=== PATIENT | female | born 1940 | race Caucasian/White ===

== ENCOUNTER → 2024-05-19 14:38 | Outpatient (REF) | payer MEDICARE, OTHER, SELFPAY | LOC: HWRAD 14:38 | PROVIDERS: ATTENDING PHYSICIAN Internal Medicine Critical Care Medicine; FAMILY PHYSICIAN Family Medicine | DX: R06.02 Shortness of breath (principal) | CPT/HCPCS: 71046 ==

== ENCOUNTER → 2024-06-18 10:10 | Outpatient (REF) | payer MEDICARE, OTHER, SELFPAY | LOC: RCS 10:10 | PROVIDERS: ATTENDING PHYSICIAN Internal Medicine; FAMILY PHYSICIAN Family Medicine | DX: I48.0 Paroxysmal atrial fibrillation (principal); I10 Essential (primary) hypertension | CPT/HCPCS: 93306 ==

== ENCOUNTER 2024-06-27 16:17 | Observation (INO) | payer MEDICARE, OTHER, SELFPAY ==
[2024-06-27] VITALS (7 sets, daily range): BP systolic 116–136; BP diastolic 55–105; PULSE 71–102; BMI 25.8
[2024-06-27 13:11] LABS: Glucose - Point of Care 97 mg/dl (70-99)
--- NOTE | 2024-06-27 13:25 | ED.GENMED ---
History of Present Illness
General
Chief Complaint: Dizziness
Source: patient and ambulance crew
Time Seen by Provider: 06/27/24 13:09
History of Present Illness
History of Present Illness:
84 year old female wit PMH of atrial fibrillation, HTN, HLD, migraines presenting to the emergency department via EMS for a reported syncopal episode but patient stating she is not really sure what happened. Patient notes that she was sitting down
for breakfast and then remembers waking up on the floor. She believes she may have been dizzy prior to the event, postevent she states she just feels 'lousy' and when asked what is bothering her she said both her arms and legs hurt. Patient denies
any current headache, vision changes, focal weakness or numbness, chest pain, shortness of breath, palpitations, diaphoresis or any other concerns presently. Patient is unsure as to if she is on any blood thinners, previous medication list did list
Eliquis as a medication but patient is unable to confirm. Patient does seem slightly confused and it is unclear as to if patient does have a history of dementia. She lives at a independent care facility with her .
Past History
Past History
ED Past Medical History: Arrthythmia, HTN, Hypercholesterolemia, Psychiatric and Other
ED Past Surgical History: Gynecological and Orthopedic
Social History
Tobacco: Non-smoker
Alcohol: None
Drug: None
Personal:
Living: with family
Employment: Retired
Family History
Family History: Hypertension and Other (CAD, COPD)
Review of Systems
Review of Systems
All Other Systems: ROS reviewed and negative except as documented in HPI and ROS
Phy Exam
Physical Exam
Physical Exam:
GENERAL: Alert , in no apparent distress
HEAD: NCAT
EYE: conjunctiva clear
NECK: Supple
ENT: o/p clr, mmm.
CARDIAC: Regular rate and rhythm
LUNGS: Clear breath sounds bilaterally, no acute respiratory distress, no wheezes/rales/rhonchi
ABDOMEN: Soft, non tender, non distended
NEUROLOGICAL: Alert and oriented to self and place but not time, MARADIAGA x4, no sensory deficits, no facial drooping, no dysarthria/aphasia
SKIN: Warm and dry, skin intact.
MUSCULOSKELETAL: well perfused.
PSYCH: Normal and appropriate interaction.
Scores
Heart Failure Risk
Heart Failure Risk Score: Not Applicable
Heart Score for Chest Pain Patients
STEMI patient?: Not applicable
Withdrawal Assessment of Alcohol
Withdrawal Assessment Completed?: Not applicable
Course
Orders/Labs/Results
Orders:
Orders
06/27/24 13:04
Electrocardiogram (*1) Urgent
Reason for Study: Other
Other Reason for Exam: Possible Stroke
Cardiac Monitoring- Treatment ONCE
EKG- Treatment ONCE
IV Insert/Care/Rem.- Treatment PRN
Vital Signs As Directed
Frequency: Other
Weight As Directed
Frequency: Once
Comment: ZERO STRETCHER SCALE FOR ACCURATE WEIGHT
O2 Therapy [RESP] Urgent
Titrate/Wean O2 to maintain O2 sat greater than (%): 93
Special Instructions: MAINTAIN CONTINUOUS O2 SATS > OR = 93%
06/27/24 13:18
CT Head W/o Iv Contrast Urgent
Comment:
Reason For Exam: syncope, dizzy, afib
Orthostatic VS- Treatment ONCE
06/27/24 13:23
Complete Blood Count/With Diff Urgent
Comprehensive Metabolic Panel Urgent
06/27/24 13:47
0.9% Sodium Chloride 1000 ml [Nss] 1,000 ml IV BOLUS
06/27/24 15:17
Acetaminophen [Tylenol] 650 mg PO NOW STA
Abnormal Lab Results
06/27/24
13:23
RBC 3.87 L 10^6/uL
(4.20-5.40)
Hgb 10.1 L g/dL
(12.0-16.0)
Hct 31.1 L %
(37.0-47.0)
MCV 80.4 L fL
(81.0-99.0)
MCH 26.1 L pg
(27.0-31.0)
MCHC 32.5 L g/dL
(33.0-37.0)
MPV 11.1 H fL
(7.4-10.4)
Carbon Dioxide 18 L mmol/L
(22-30)
BUN 21 H mg/dl
(7-17)
Creatinine 1.1 H mg/dL
(0.6-1.0)
AST 40 H U/L
(14-36)
06/27/24 13:23
06/27/24 13:23
Vital Signs
Initial and Last Documented VS:
Initial Vital Signs
Temp Pulse Resp BP Pulse Ox
97.9 F 75 12 118/68 98
06/27/24 13:05 06/27/24 13:05 06/27/24 13:05 06/27/24 13:05 06/27/24 13:05
Last Documented Vital Signs
Temp Pulse Resp BP Pulse Ox
97.9 F 71 17 131/105 99
06/27/24 13:05 06/27/24 13:45 06/27/24 13:45 06/27/24 13:27 06/27/24 14:35
MDM/Problems Addressed
Differential Diagnosis Includes:
orthostasis, vagal event, cardiogenic syncope, anemia, electrolyte derangement, ICH
MDM/Problems Addressed:
84-year-old female presenting to the emergency department for evaluation of her what appears to be a syncopal event. Patient questionably symptomatic presyncope but does appear somewhat confused. He is will check labs, orthostatics, CT of the head
given patient's suspected anticoagulated status. Patient is otherwise hemodynamically stable to go home and in no acute distress.
Chronic conditions affecting care: Arrhythmia
*Radiology
Radiology exam reviewed: radiology read reviewed
*Pulse Oximetry
Patient hypoxic: no
*EKG
Interpreted by ED Provider?: Yes
Heart Rate: 75
Rhythm: junctional
Estero: normal axis
Ischemia: no ischemia
*Collating Machine Operator Interpretation
Rate: normal
Rhythm: junctional
*Critical Care Note
Total Time (30-74mins, 75-104mins- exclusive of procedures): Not Applicable
Data Reviewed
Review of Other/Old Records Reveals: Labs and Records
Patient Management
Discussion with other providers: Hospitalist
Escalation/DeEscalation of care consider admission/obs:
Patient's orthostatic vital signs were noted. While her blood pressure did not drop significantly she did have some tachycardia. Labs do reveal a mild anemia as well as prerenal azotemia. This was treated with 1 L of normal saline. Head CT is
without any acute findings. Given her age combined with comorbidities I do feel it would be best to monitor the patient overnight, continue IV fluids and keep on telemetry to evaluate for any possible cardiac dysrhythmia. Hospitalist team is aware
and accepts for continued evaluation and treatment.
ED Attending Note
-
Portions of this chart may have been created with voice recognition software.� Occasional wrong word or��sound alike� substitutions may have occurred due to the inherent limitations of voice recognition software.
Discharge Plan
Departure
Patient Disposition: Admit
Date of Disposition: 06/27/24
Time of Disposition: 14:49
Presentation/result/management discussed w/ accepting MD/DO: Hospitalist
Discharge Problem:
Syncope, MIREILLE (acute kidney injury)
Prescriptions:
No Action
atorvastatin 40 MG tablet
40 mg PO HS
raloxifene 60 MG tablet
60 mg PO DAILY
docosahexaenoic acid-epa 1 CAP capsule
1 cap PO HS
levothyroxine 75 MCG tablet
75 mcg PO DAILY
calcium carbonate 600 MG tablet
600 mg PO DAILY
vitamin E (dl, acetate) 100 UNITS capsule
100 units PO HS
Centrum 1 EACH tablet
1 ea PO DAILY
PreserVision AREDS 1 CAP capsule
1 cap PO DAILY
cholecalciferol (vitamin D3) 2,000 UNITS tablet
2,000 units PO HS
pantoprazole 40 MG tablet,delayed release (DR/EC)
40 mg PO DAILY
Eliquis 5 MG tablet
5 mg PO BID
metoprolol succinate 25 MG tablet extended release 24 hr
25 mg PO DAILY Qty: 30 0RF
amlodipine 2.5 MG tablet
2.5 mg PO DAILY Qty: 30 0RF
spironolactone 25 MG tablet
25 mg PO DAILY
diltiazem HCl 180 MG capsule,extended release 24hr
180 mg PO DAILY
fluoxetine 40 mg Capsule
40 mg PO DAILY
donepezil 10 mg Tablet
10 mg PO HS
isosorbide dinitrate 30 mg Tablet
30 mg PO BID
memantine 10 mg Tablet
10 mg PO BID
Referrals:
Martin Larios MD [Family Provider] -
Interventions
Interventions:
*Risk Screen - Suicide Last Done: 06/27/24 13:05
*General Assessment Last Done: 06/27/24 13:05
*Neglect/Abuse Screening Last Done: 06/27/24 13:05
ED- Fall Risk Assessment Last Done: 06/27/24 14:35
*ED COVID-19 Vaccine History Last Done: 06/27/24 13:05
ED- Neurological Assessment Last Done: 06/27/24 13:19
ED- Cardiac Assessment Last Done: 06/27/24 14:35
ED Swallowing Screen Last Done: 06/27/24 15:10
Discharge Date and Time
Print Language: SAMI
[2024-06-27 13:39] LABS: % Basophils 0.9 % (0-2); % Immature Granulocytes 0.2 % (0-0.5); % Lymphocytes 30.5 % (20.5-51.1); % Monocytes 8.9 % (1.7-9.3); % Neutrophils 57.5 % (42.2-75.2); Absolute Basophils 0.1 10^3/uL (0-0.2); Absolute Eosinophils 0.1 10^3/uL (0-0.7); Absolute Lymphocytes 1.9 10^3/uL (1.2-3.4); Absolute Monocytes 0.6 10^3/uL (0.1-0.6); Absolute Neutrophils 3.7 10^3/uL (1.4-6.5); Hematocrit 31.1 % (37.0-47.0); Hemoglobin 10.1 g/dL (12.0-16.0); Mean Corp Hgb Conc. 32.5 g/dL (33.0-37.0); Mean Corpuscular Hgb 26.1 pg (27.0-31.0); Mean Corpuscular Volume 80.4 fL (81.0-99.0); Mean Platelet Volume 11.1 fL (7.4-10.4); Nucleated Red Blood Cells % 0 %; Platelet Count 245 10^3/uL (130-400); Red Blood Cell Count 3.87 10^6/uL (4.20-5.40); Red Cell Dist. Width 14.5 % (11.5-14.5); White Blood Cell Count 6.4 10^3/uL (4.8-10.8)
[2024-06-27 13:43] LABS: ALT (SGPT) 25 U/L (0-35); AST (SGOT) 40 U/L (14-36); Albumin 4.2 g/dl (3.5-5.0); Alkaline Phosphatase 75 U/L (38-126); Blood Urea Nitrogen 21 mg/dl (7-17); Calcium 9.6 mg/dl (8.4-10.2); Carbon Dioxide 18 mmol/L (22-30); Chloride 106 mmol/L (98-107); Estimated Creatinine Clearance 30 ml/min; Glucose 99 mg/dl (70-99); Potassium 4.5 mmol/L (3.5-5.1); Sodium 141 mmol/L (135-145); Total Bilirubin 0.6 mg/dl (0.2-1.3); Total Protein 6.8 g/dl (6.3-8.2); eGFR 49.24
[2024-06-27] MEDS: NSS 1000 IV (13:52)
[2024-06-27] MEDS: TYLENOL 650 MG PO (15:21)
--- NOTE | 2024-06-27 15:59 | HPS.HSE ---
Family Physician
-
Family Physician: Martin Larios
Chief Complaint
-
dizziness
History of Present Illness
84-year-old female past medical history of dementia, paroxysmal atrial fibrillation status post pulmonary vein isolation, hypertension, hyperlipidemia, hypothyroidism, microcytic anemia, chronic kidney disease migraines presented to emergency room
for reported dizziness resulting in presyncopal episode. History is obtained from patient's who states that she was walking with assistance from her when she felt dizzy and he brought her down to the ground. She did not hit her
head or have any injury. She denies passing out.
She denies any headache, visual changes, focal weakness or numbness or tingling, chest pain or shortness of breath. Patient frequently gets dizzy when she stands up too quickly or turns her head. She sometimes feels like her heart is racing.
Patient was noted to seem slightly confused by ER. She lives in independent care with her .
Medical History
Past Medical History
Past Medical History: Reports Other (dementia, paroxysmal atrial fibrillation status post pulmonary vein isolation, hypertension, hyperlipidemia, hypothyroidism, microcytic anemia, chronic kidney disease migraines)
Past Surgical History: Reports None
Social History
Tobacco: Non-smoker
Alcohol: None
Drug: None
Family History
Family History: Not pertinent
Allergies / Home Medications
Allergies reflects when Allergies were last updated in [employer].
Home Medications with original date entered in [employer]
Allergy/Medication List:
Allergies
Allergy/AdvReac Type Severity Reaction Status Date / Time
No Known Allergies Allergy Verified 08/25/22 16:08
Home Medications
atorvastatin 40 mg tablet 40 mg PO HS High cholesterol 05/24/13
docosahexaenoic acid (dha)-epa 120 mg-180 mg capsule 1 cap PO HS Supplement 05/24/13
raloxifene 60 mg tablet 60 mg PO DAILY Hormonal agent 05/24/13
calcium carbonate 600 mg PO DAILY Supplement 10/24/19
levothyroxine 75 mcg tablet 75 mcg PO DAILY Thyroid 10/24/19
multivitamin-ferrous fumarate-folic acid 18 mg-400 mcg tablet (Centrum) 1 ea PO DAILY Supplement 10/24/19
vitamin E (dl, acetate) 45 mg (100 unit) capsule 100 units PO HS Supplement 10/24/19
vitamins A,C,A-wlky-gmrlbw 4,296 mcg-226 mg-90 mg capsule (PreserVision AREDS) 1 cap PO DAILY Supplement 04/14/21
cholecalciferol (vitamin D3) 50 mcg (2,000 unit) tablet 2,000 units PO HS Supplement 04/30/21
pantoprazole 40 mg tablet,delayed release 40 mg PO DAILY Gastrointestinal issue 05/01/21
apixaban 5 mg tablet (Eliquis) 5 mg PO BID 08/30/21
amlodipine 2.5 mg tablet 2.5 mg PO DAILY #30 tabs 09/02/21
metoprolol succinate 25 mg tablet,extended release 24 hr 25 mg PO DAILY #30 tabs 09/02/21
diltiazem HCl 180 mg capsule,extended release 24 hr 180 mg PO DAILY 11/14/21
spironolactone 25 mg tablet 25 mg PO DAILY 11/14/21
donepezil 10 mg tablet 10 mg PO HS 06/27/24
fluoxetine 40 mg capsule 40 mg PO DAILY 06/27/24
isosorbide dinitrate 30 mg tablet 30 mg PO BID 06/27/24
memantine 10 mg tablet 10 mg PO BID 06/27/24
Review of Systems
-
History Source: Patient
A 12 point ROS was completed and negative except as noted: Yes
Constitutional: Reports No Symptoms
EENT: Reports No Symptoms
Respiratory: Reports No Symptoms
Cardiac: Reports No Symptoms
Abdomen/GI: Reports No Symptoms
: Reports No Symptoms
Musculoskeletal: Reports No Symptoms
Skin: Reports No Symptoms
Neurological: Reports No Symptoms
Endocrine: Reports No Symptoms
Hematologic/Lymphatic: Reports No Symptoms
Psych: Reports No Symptoms
Physical Exam
Vital Signs
Vital Signs
Temp Pulse Resp BP Pulse Ox
97.9 F 71 17 131/105 99
06/27/24 13:05 06/27/24 13:45 06/27/24 13:45 06/27/24 13:27 06/27/24 14:35
Physical Exam
General: Well Developed, Well Nourished and No Apparent Distress
HEENT: NormoCephalic, Moist mucous membranes and Atraumatic
Respiratory: Clear
Cardiac: S1/S2 and Regular Rhythm; No Murmur or Rub
GI: Soft, Non Tender, Non Distended and Normal Bowel Sounds; No Organomegaly
Rectal: Deferred by Provider
Musculoskeletal: No Clubbing, No Cyanosis and No Edema
Skin: No Rash
Neuro: Nonfocal/grossly intact
Laboratory Results
-
06/27/24 13:23
06/27/24 13:23
Laboratory Results
Total Bilirubin 0.6 mg/dl (0.2-1.3) 06/27/24 13:23
AST 40 U/L (14-36) H 06/27/24 13:23
ALT 25 U/L (0-35) 06/27/24 13:23
Alkaline Phosphatase 75 U/L (38-126) 06/27/24 13:23
Data Reviewed
-
Lab Data: Labs Reviewed by me
Old Records: Reviewed
Impression/Plan
-
IMPRESSION:
PLAN:
# Syncopal episode likely orthostatic hypotension from blood pressure medications
-Orthostatics barely positive due to pulse increasing from 71 to 102 upon standing
-IV fluids given
-Hold amlodipine since she is on diltiazem
-Hold isosorbide dinitrate, unclear indication since no CAD or CHF history
-Continue spironolactone
-Telemetry monitoring
-Check daily orthostatics
-PT/OT
Paroxysmal atrial fibrillation status post pulmonary vein isolation
-Continue diltiazem
-Continue Eliquis
-Continue metoprolol
Essential hypertension
-Hold amlodipine since taking diltiazem
-Continue spironolactone
Hyperlipidemia
-Continue statin
Hypothyroidism
-Continue levothyroxine
Chronic kidney disease
-Renal function at baseline
Microcytic anemia
-Stable
History of migraines
Dementia
-Continue donepezil, memantine
Anxiety/depression
-Continue fluoxetine
Osteoporosis
-Continue raloxifene
Full code
DVT prophylaxis�Eliquis
Regular diet
[2024-06-27] MEDS: NAMENDA 10 MG PO (20:15)
[2024-06-27] MEDS: ELIQUIS 5 MG PO (20:15)
[2024-06-27] MEDS: ARICEPT 10 MG PO (21:09)
[2024-06-27] MEDS: VITAMIN E 100 UNITS PO (21:09)
[2024-06-27] MEDS: LIPITOR 40 MG PO (21:09)
[2024-06-27] MEDS: VITAMIN D3 (cholecalciferol) 50 MCG PO (21:09)
[2024-06-28] VITALS (7 sets, daily range): BP systolic 114–146; BP diastolic 56–83; PULSE 76–82; O2SAT 98–99; BMI 24.9
[2024-06-28] MEDS: SYNTHROID 75 MCG PO (05:55)
[2024-06-28 07:28] LABS: % Basophils 0.8 % (0-2); % Eosinophils 1.8 % (0-6); % Immature Granulocytes 0.2 % (0-0.5); % Lymphocytes 21.9 % (20.5-51.1); % Neutrophils 65.3 % (42.2-75.2); Absolute Eosinophils 0.1 10^3/uL (0-0.7); Absolute Lymphocytes 1.1 10^3/uL (1.2-3.4); Absolute Monocytes 0.5 10^3/uL (0.1-0.6); Absolute Neutrophils 3.3 10^3/uL (1.4-6.5); Hematocrit 27.4 % (37.0-47.0); Hemoglobin 8.8 g/dL (12.0-16.0); Mean Corp Hgb Conc. 32.1 g/dL (33.0-37.0); Mean Corpuscular Volume 80.8 fL (81.0-99.0); Mean Platelet Volume 11.5 fL (7.4-10.4); Nucleated Red Blood Cells % 0 %; Platelet Count 175 10^3/uL (130-400); Red Blood Cell Count 3.39 10^6/uL (4.20-5.40); Red Cell Dist. Width 14.2 % (11.5-14.5); White Blood Cell Count 5.1 10^3/uL (4.8-10.8)
[2024-06-28 07:47] LABS: ALT (SGPT) 23 U/L (0-35); AST (SGOT) 31 U/L (14-36); Albumin 3.4 g/dl (3.5-5.0); Alkaline Phosphatase 70 U/L (38-126); Blood Urea Nitrogen 20 mg/dl (7-17); Carbon Dioxide 17 mmol/L (22-30); Chloride 109 mmol/L (98-107); Estimated Creatinine Clearance 33 ml/min; Glucose 99 mg/dl (70-99); Potassium 4.2 mmol/L (3.5-5.1); Sodium 140 mmol/L (135-145); Total Bilirubin 0.3 mg/dl (0.2-1.3); Total Protein 5.8 g/dl (6.3-8.2); eGFR 55.21
[2024-06-28] MEDS: CARDIZEM CD 180 MG PO (07:49)
[2024-06-28] MEDS: PROTONIX 40 MG PO (07:50)
[2024-06-28] MEDS: ELIQUIS 5 MG PO ×2 (07:50→19:48)
[2024-06-28] MEDS: TOPROL XL 25 MG PO (07:50)
[2024-06-28] MEDS: THERAGRAN 1 TABLET PO (07:50)
[2024-06-28] MEDS: OSCAL CAL 500 500 MG PO (07:50)
[2024-06-28] MEDS: ALDACTONE 25 MG PO (07:50)
[2024-06-28] MEDS: NAMENDA 10 MG PO ×2 (07:50→19:48)
[2024-06-28] MEDS: EVISTA 60 MG PO (07:50)
[2024-06-28] MEDS: OCUVITE SOFTGEL 1 CAP PO (07:50)
[2024-06-28] MEDS: PROZAC 40 MG PO (07:51)
--- NOTE | 2024-06-28 10:18 | PTOTSP ---
pt currently demonstrates ability to complete simple ADLs, functional transfers, ambulation with supervision. no acute OT needs identified at this time, will sign off.
--- NOTE | 2024-06-28 14:42 | W.PN.HOSP.TC ---
Today's Communication/Plan
-
Consulted cardiology given patient's near syncope
Continue tele
Echo
Assessment / Plan
Assessment / Plan
Physical Exam
General: Well Developed, Well Nourished and No Apparent Distress
HEENT: Normocephalic
Respiratory: Clear to Auscultation Bilaterally
Cardiac: S1/S2 and Regular Rhythm
GI: Soft, Non Tender, Non Distended and Normal Bowel Sounds
Musculoskeletal: No Cyanosis and No Edema
Skin: Warm. Dry.
Neuro: Nonfocal/grossly intact

84-year-old female past medical history of dementia, paroxysmal atrial fibrillation status post pulmonary vein isolation, hypertension, hyperlipidemia, hypothyroidism, microcytic anemia, chronic kidney disease migraines presented to the emergency
room for reported dizziness resulting in presyncopal episode. History is obtained from patient's who states that she was walking with assistance from her when she felt dizzy and he brought her down to the ground. She did not hit
her head or have any injury. She denied passing out.
She denied any headache, visual changes, focal weakness or numbness or tingling, chest pain or shortness of breath. Patient frequently gets dizzy when she stands up too quickly or turns her head. She sometimes feels like her heart is racing.
Patient was noted to seem slightly confused by ER. She lives in independent care with her .
# Syncopal episode likely orthostatic hypotension from blood pressure medications
-Orthostatics vital signs negative
-IV fluids given
-Hold amlodipine since patient is on diltiazem
-Hold isosorbide dinitrate, unclear indication since no CAD or CHF history
-Continue spironolactone
-Telemetry monitoring
-Check daily orthostatics
-Consulted cardiology, patient sees [facility] cardiology outpatient, appreciate evaluation and recommendations
-PT/OT
Paroxysmal atrial fibrillation status post pulmonary vein isolation
-Continue diltiazem
-Continue Eliquis
-Continue metoprolol
Essential hypertension
-Hold amlodipine since taking diltiazem
-Continue spironolactone
Hyperlipidemia
-Continue statin
Hypothyroidism
-Continue levothyroxine
Chronic kidney disease
-Renal function at baseline
Microcytic anemia
-Stable
History of migraines
Dementia
-Continue donepezil, memantine
Anxiety/depression
-Continue fluoxetine
Osteoporosis
-Continue raloxifene
Full code
DVT prophylaxis�Eliquis
Regular diet
Anticipated Discharge: Within 24 hours
Subjective/Interval History
-
Date of Service: June 28, 2024
Patient was seen and examined. She reported that her symptoms have all resolved, and she does not have any chest pain, dizziness, SOB or any other symptoms or complaints.
Objective Data
-
Labs:
Laboratory Results
06/28/24 06/28/24
06:37 19:30
WBC 5.1
Hgb 8.8 L
Hct 27.4 L
Plt Count 175 D
Sodium 140 Pending
Potassium 4.2 Pending
Chloride 109 H Pending
Carbon Dioxide 17 L Pending
BUN 20 H Pending
Creatinine 1.0 Pending
Glucose 99 Pending
Calcium 9.0 Pending
Total Bilirubin 0.3
AST 31
ALT 23
Alkaline Phosphatase 70
Vital Signs:
Vital Signs
Temp Pulse Resp BP Pulse Ox
98.5 F 64 14 139/73 98
06/28/24 08:26 06/28/24 08:26 06/28/24 08:26 06/28/24 08:26 06/28/24 08:26
I&O
0906/28/24 06/29/24
06:59 06:59 06:59
Intake Total 240 / 240
Output Total 300 / 300
Balance -60 / -60
--- NOTE | 2024-06-28 14:52 | CON.CAR ---
Addendum entered and electronically signed by Hansel Guadarrama MD 06/30/24 09:17:
I saw and examined the patient.
The WASTEWATER DESIGN ENGINEER's note was reviewed and I agree with the note.
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
element, transient intermittent orthostasis, dyslipidemia, previous TIA (08/2018), mild renal insufficiency, hypothyroidism, ambulatory dysfunction, VINH on CPAP, and mild Alzheimer's dementia presented to the emergency department with an episode of
pre-syncope. It is not clear that she had a true syncopal episode. She does not recall 'blacking out' but is able to say she was lead to the ground, however, she is a poor historian.
- will adjust BP medications and monitor
Patient was seen and examined on Jun 28, 2024, this is a late addendum.
Original Note:
Consultation
Consultation Request
Date/Time Consultation Requested: 06/28/2024 14:49
Date/Time Consultation Performed: 06/28/2024 15:00
Requesting Provider: Dr. Galvan
Performing Provider: RAINE Luis for Dr. Guadarrama
Reason for Consultation: Syncope
Medical History
-
Chief Complaint: Pre-syncope
History of Present Illness:
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
white-coat element, transient intermittent orthostasis, dyslipidemia, previous TIA (08/2018), mild renal insufficiency, hypothyroidism, ambulatory dysfunction, VINH on CPAP, and mild Alzheimer's dementia presented to the emergency department with an
episode of pre-syncope. She does not recall the event. He she is feeling 'great' at present. She has no chest pain, shortness of breath, nor dizziness.
Past Medical History
Past Medical History: Arrhythmias (Paroxysmal atrial fibrillation [ablation 2021]), HTN, Hypercholesterolemia, Hypothyroidism and Other (Dementia, TIA)
Social History
Tobacco: Non-Smoker
Alcohol: None
Drug: None
Personal:
Living: With Family ( and daughter)
Employment: Retired
Family History
Family History: Unable to Obtain
Allergies / Home Medications
Allergy/AdvReac Type Severity Reaction Status Date / Time
No Known Allergies Allergy Verified 08/25/22 16:08
�Medication �Instructions �Recorded �Confirmed �Type
atorvastatin 40 mg tablet 40 mg PO HS High cholesterol 05/24/13 06/27/24 History
docosahexaenoic acid (dha)-epa 120 1 cap PO HS Supplement 05/24/13 06/27/24 History
mg-180 mg capsule
raloxifene 60 mg tablet 60 mg PO DAILY Hormonal agent 05/24/13 06/27/24 History
calcium carbonate 600 mg PO DAILY Supplement 10/24/19 06/27/24 History
levothyroxine 75 mcg tablet 75 mcg PO DAILY Thyroid 10/24/19 06/27/24 History
multivitamin-ferrous 1 ea PO DAILY Supplement 10/24/19 06/27/24 History
fumarate-folic acid 18 mg-400 mcg
tablet (Centrum)
vitamin E (dl, acetate) 45 mg (100 100 units PO HS Supplement 10/24/19 06/27/24 History
unit) capsule
vitamins A,C,R-ktvw-ebuzqy 4,296 1 cap PO DAILY Supplement 04/14/21 06/27/24 History
mcg-226 mg-90 mg capsule
(PreserVision AREDS)
cholecalciferol (vitamin D3) 50 2,000 units PO HS Supplement 04/30/21 06/27/24 History
mcg (2,000 unit) tablet
pantoprazole 40 mg tablet,delayed 40 mg PO DAILY Gastrointestinal 05/01/21 06/27/24 History
release issue
apixaban 5 mg tablet (Eliquis) 5 mg PO BID 08/30/21 06/27/24 History
amlodipine 2.5 mg tablet 2.5 mg PO DAILY #30 tabs 09/02/21 06/27/24 Rx
metoprolol succinate 25 mg 25 mg PO DAILY #30 tabs 09/02/21 06/27/24 Rx
tablet,extended release 24 hr
diltiazem HCl 180 mg 180 mg PO DAILY 11/14/21 06/27/24 History
capsule,extended release 24 hr
spironolactone 25 mg tablet 25 mg PO DAILY 11/14/21 06/27/24 History
donepezil 10 mg tablet 10 mg PO HS 06/27/24 06/27/24 History
fluoxetine 40 mg capsule 40 mg PO DAILY 06/27/24 06/27/24 History
isosorbide dinitrate 30 mg tablet 30 mg PO BID 06/27/24 06/27/24 History
memantine 10 mg tablet 10 mg PO BID 06/27/24 06/27/24 History
Review of Systems
-
History Source: Patient
All other systems: Negative unless noted
Constitutional: No Symptoms
EENT: No Symptoms
Respiratory: No Symptoms
Cardiac: No Symptoms
Abdomen/GI: No Symptoms
: No Symptoms
Musculoskeletal: No Symptoms
Skin: No Symptoms
Neurological: No Symptoms
Endocrine: No Symptoms
Hematologic/Lymphatic: No Symptoms
Physical Exam
Vital Signs
Temp Pulse Resp BP Pulse Ox
98.5 F 64 14 139/73 98
06/28/24 08:26 06/28/24 08:26 06/28/24 08:26 06/28/24 08:26 06/28/24 08:26
Lab Results
06/28/24 06:37
Physical Exam
General: Well Developed, Well Nourished, No Apparent Distress and Comfortable
HEENT: Normocephalic, Anicteric and Moist Mucous Membranes
Respiratory: Clear and Non Labored Respirations
Cardiac: S1/S2 and Regular Rhythm; Negative Peripheral Edema
Breast: Deferred by me
GI: Soft, Non Tender, Non Distended and Normal Bowel Sounds
Rectal: Deferred by Provider
Genito-urinary: No Costovertebral Tender
Musculoskeletal: No Clubbing, No Cyanosis and No Edema
Skin: Warm and Dry
Neuro: AO x 3
Hematologic/Lymphatic: No Lymphadenopathy
Psych: Calm
Impression / Plan
-
Background: 84F with paroxysmal atrial fibrillation status post cardioversion (05/25/2020) and subsequent ablation (11/14/2021; currently on apixaban), hypertension with mild white-coat element, transient intermittent orthostasis, dyslipidemia,
previous TIA (08/2018), mild renal insufficiency, hypothyroidism, ambulatory dysfunction, VINH on CPAP, and mild Alzheimer's dementia presented to the emergency department with an episode of pre-syncope.
Small Machine Bindery Operator: Dr. Jama
Pre-syncope
-Orthostatic vital signs negative
-EKG with possible junctional rhythm in ER (lack of P waves), EKG in a.m.
-Follow telemetry, if unrevealing, consider outpatient cardiac monitoring
-Echocardiogram 10 days ago stable, no need for inpatient study
Paroxysmal atrial fibrillation
-Ablation 11/14/2021
-Oral Anticoagulation: Apixaban 5 mg twice daily
-[id number]: score at least 6 (HTN, age 75 or more, prior Stroke/TIA, female gender)
Hypertension, isosorbide dinitrate and amlodipine held by primary service
Anemia, acute on chronic, per primary
Dyslipidemia, on atorvastatin
Dementia, on medical therapy
Data:
Transthoracic echocardiogram, 06/18/2024:
Normal biventricular size and systolic function without regional wall motion
abnormality.
Mild aortic regurgitation.
No significant change since the prior study of 05/06/2022.
Data Reviewed
-
EKG: Report Reviewed by me (Junctional rhythm, rate 75)
Labs: Labs Reviewed by me
Old Records: Reviewed
--- NOTE | 2024-06-28 15:43 | CM ---
Reviewed chart, met with patient to obtain information for assessment. Patient stated that she lives with her daughter and spouse in a single one story apartment with no steps to enter. She described herself as independent with dressing, bathing,
toileting, all other ADLs and uses a walker to assist with her ambulation.
Cardiology came in to see patient and therefore called patient's spouse to obtain the rest of the information.
Patient's spouse stated that he assists as well as his daughter with sales solutions representative and they do not cook a lot. No concerns were relayed regarding doing laundry or cleaning.
Patient does not drive but her spouse or son are able to transport her to her appointments and do all of her shopping.
She has never had VN.
She has never been to a SNF.
Patient has a prescription plan and uses, [facility] pharmacy in [place] for all of her medications.
Her PCP is, Martin Larios.
Reviewed [facility] letter. Patient spouse agreeable. Now on chart.
He hopes that she will be able to return home when stable.
Plan: Case management will continue to follow and assist with discharge planning. Tentative home when stable.
[2024-06-28 19:40] LABS: Blood Urea Nitrogen 22 mg/dl (7-17); Calcium 9.8 mg/dl (8.4-10.2); Carbon Dioxide 21 mmol/L (22-30); Chloride 106 mmol/L (98-107); Estimated Creatinine Clearance 30 ml/min; Glucose 112 mg/dl (70-99); Potassium 4.4 mmol/L (3.5-5.1); Sodium 138 mmol/L (135-145); eGFR 49.24
[2024-06-28] MEDS: VITAMIN D3 (cholecalciferol) 50 MCG PO (21:50)
[2024-06-28] MEDS: LIPITOR 40 MG PO (21:50)
[2024-06-28] MEDS: ARICEPT 10 MG PO (21:50)
[2024-06-28] MEDS: VITAMIN E 100 UNITS PO (21:50)
[2024-06-29 03:30] VITALS: BP 130/61
[2024-06-29] MEDS: SYNTHROID 75 MCG PO (06:11)
[2024-06-29 06:28] LABS: Hematocrit 27.8 % (37.0-47.0); Hemoglobin 9.3 g/dL (12.0-16.0); Mean Corp Hgb Conc. 33.5 g/dL (33.0-37.0); Mean Corpuscular Hgb 27.1 pg (27.0-31.0); Mean Platelet Volume 11.2 fL (7.4-10.4); Platelet Count 161 10^3/uL (130-400); Red Blood Cell Count 3.43 10^6/uL (4.20-5.40); Red Cell Dist. Width 14.2 % (11.5-14.5); White Blood Cell Count 4.6 10^3/uL (4.8-10.8)
[2024-06-29 06:51] LABS: Blood Urea Nitrogen 17 mg/dl (7-17); Calcium 9.2 mg/dl (8.4-10.2); Carbon Dioxide 21 mmol/L (22-30); Chloride 109 mmol/L (98-107); Estimated Creatinine Clearance 33 ml/min; Glucose 89 mg/dl (70-99); Magnesium 1.8 mg/dl (1.6-2.3); Potassium 3.9 mmol/L (3.5-5.1); Sodium 141 mmol/L (135-145); eGFR 55.21
[2024-06-29 07:29] VITALS: BP 140/66
--- NOTE | 2024-06-29 07:48 | W.PN.CD ---
Today's Communication / Plan
-
-Continue Metoprolol 25mg QD .
-Can discontinue Diltiazem and Amlodipine.
-Restart Imdur 30 mg QD. (Switch from Isordil to Imdur)
Impression / Plan
-
Background: 84F with paroxysmal atrial fibrillation status post cardioversion (05/25/2020) and subsequent ablation (11/14/2021; currently on apixaban), hypertension with mild white-coat element, transient intermittent orthostasis, dyslipidemia,
previous TIA (08/2018), mild renal insufficiency, hypothyroidism, ambulatory dysfunction, VINH on CPAP, and mild Alzheimer's dementia presented to the emergency department with an episode of pre-syncope.
Program Instructor: Dr. Jama
Pre-syncope
-Unclear etiology -Orthostatic vital signs negative
-EKG with possible junctional rhythm in ER but not slow - resolved. The rhythm is now sinus.
-Follow telemetry, if unrevealing, consider outpatient cardiac monitoring
-Echocardiogram 10 days ago stable, no need for inpatient study
Paroxysmal atrial fibrillation
-Ablation 11/14/2021 - sinus since then.
-Oral Anticoagulation: Apixaban 5 mg twice daily
-[id number]: score at least 6 (HTN, age 75 or more, prior Stroke/TIA, female gender)
Hypertension,
-isosorbide dinitrate and amlodipine held
-BP is stable to borderline elevated.
-On Metoprolol 25mg QD and Diltiazem dose reduced to 120 mg QD.
-Can discontinue Diltiazem and Amlodipine.
-Restart Imdur 30 mg QD. (Switch from Isordil to Imdur)
Anemia, acute on chronic, per primary
Dyslipidemia, on atorvastatin
Dementia, on medical therapy
Data:
Transthoracic echocardiogram, 06/18/2024:
Normal biventricular size and systolic function without regional wall motion
abnormality.
Mild aortic regurgitation.
No significant change since the prior study of 05/06/2022.
Physical Exam
Vital Signs/Labs
Vital Signs
Temp Pulse Resp BP Pulse Ox
97.3 F 53 16 140/66 98
06/29/24 07:29 06/29/24 07:29 06/29/24 07:29 06/29/24 07:29 06/29/24 07:29
06/28/24 06/29/24 06/30/24
06:59 06:59 06:59
Actual Weight 61.689 kg
06/29/24 06:09
06/29/24 06:09
Magnesium 1.8 mg/dl (1.6-2.3) 06/29/24 06:09
Physical Exam
Constitutional: No acute distress and Comfortable
EENT: Anicteric and Moist mucous membranes
Cardiovascular: Rhythm & rate is regular, Pedal edema is absent and JVD pressure is normal
Respiratory: Respiratory effort normal and Lungs clear to auscul.
GI: Soft, Non tender and Normal bowel sounds
Neuro/Psych: Alert, Oriented and AO x 3
Data Reviewed
-
Date of Service: June 29, 2024
Medical Decision Making: Reviewed Test Results and Review of Case with other Provider
EKG: Tracing Personally Visualized and interpreted
Echo: Report Reviewed by me
Labs: Labs Reviewed by me
Old Records: Reviewed
[2024-06-29] MEDS: OCUVITE SOFTGEL 1 CAP PO (08:36)
[2024-06-29] MEDS: ALDACTONE 25 MG PO (08:36)
[2024-06-29] MEDS: ELIQUIS 5 MG PO (08:37)
[2024-06-29] MEDS: PROTONIX 40 MG PO (08:37)
[2024-06-29] MEDS: NAMENDA 10 MG PO (08:37)
[2024-06-29] MEDS: THERAGRAN 1 TABLET PO (08:37)
[2024-06-29] MEDS: TOPROL XL 25 MG PO (08:37)
[2024-06-29] MEDS: OSCAL CAL 500 500 MG PO (08:37)
[2024-06-29] MEDS: IMDUR (EXTENDED RELEASE) 30 MG PO (08:37)
[2024-06-29] MEDS: EVISTA 60 MG PO (08:38)
[2024-06-29] MEDS: PROZAC 40 MG PO (08:38)
--- NOTE | 2024-06-29 09:36 | PN.CDI ---
CDI
- -
CDI:
Physician Documentation Request
Admit Date: 06/27/24 16:17
Dear Doctor Cole,
Please review the following and provide your response in the progress notes.
Clinical Indicators:
- 06/28 PN indicates CKD without specificity
- 'Chronic kidney disease-Renal function at baseline'
Laboratory Tests
06/27/24 06/28/24 06/29/24
13:23 19:14 06:09
Creatinine 1.1 H 1.1 H 1.0
eGFR 49.24 49.24 55.21
Please clarify which of the following accurately represents the patient's renal status:
CKD 3a
Other
Criteria for MIREILLE*
1 Increase in serum creatinine by > or = to 0.3 mg/dL (> or = to 26.5 micromol/L) within 48 hours, OR
2 Increase in serum creatinine to > or = to 1.5 times baseline, which is known or presumed to have occurred within 7 days, OR
3 Urine volume < 0.5 nL/kg/hour for six hours
Stages of Chronic Kidney Disease*
Level Description GFR
G1 Normal or High >90
G2 Mildly decreased 60-89
G3a Mildly to moderately decreased 45-59
G3b Moderately to severely decreased 30-44
G4 Severely decreased 15-29
G5 Kidney failure <15
Use of terms such as suspected, likely, concern for, or probable (associated with a specific diagnosis that is being evaluated, monitored, or treated as if it exists) are acceptable and can be coded in the inpatient setting, when documented at the
time of discharge.
Thank you,
Izaiah Brandt RN
CDI Specialist
Please use your independent medical judgment in providing your response.
*Source: Kidney Disease: Improving Global Outcomes (KDIGO) 2012
--- NOTE | 2024-06-29 09:39 | PN.CDI ---
CDI
- -
CDI:
Physician Documentation Request
Admit Date: 06/27/24 16:17
Dear Doctor Cole,
Please review the following and provide your response in the progress notes.
Clinical Indicators:
- 06/27 ER Physician 'Patient questionably symptomatic presyncope but does appear somewhat confused'
- 06/28 PN indicates PMH dementia
- 'Patient was noted to seem slightly confused by ER'
Please clarify which, if any of the following, is the most likely etiology of the confusion/altered mental status.
Encephalopathy - indicate type, such as metabolic, toxic, septic, alcoholic, anoxic, hypertensive etc. due to a specific condition such as UTI, CVA, hyponatremia etc.
Dementia with acute delirium - indicate type fo dementia, such as Alzheimer's, senile, vascular, Lewy body etc.
Baseline Dementia - indicate type, such as Alzheimer's, senile, vascular, Lewy body etc., and any associated behavioral disturbances (aggressive, combative or violent behavior) if present
Acute or subacute confusional state due to (specify known or suspected etiology)
Other
Use of terms such as suspected, likely, concern for, or probable (associated with a specific diagnosis that is being evaluated, monitored, or treated as if it exists) are acceptable and can be coded in the inpatient setting, when documented at the
time of discharge.
Thank you,
Izaiah Brandt RN
CDI Specialist
Please use your independent medical judgment in providing your response.
[2024-06-29 11:32] VITALS: BP 113/50
--- NOTE | 2024-06-29 12:45 | W.PN.HOSP.TC ---
Today's Communication/Plan
-
Discharge today
Assessment / Plan
Assessment / Plan
Physical Exam
General: Well Developed, Well Nourished and No Apparent Distress
HEENT: Normocephalic
Respiratory: Clear to Auscultation Bilaterally
Cardiac: S1/S2 and Regular Rhythm
GI: Soft, Non Tender, Non Distended and Normal Bowel Sounds
Musculoskeletal: No Cyanosis and No Edema
Skin: Warm. Dry.
Neuro: Nonfocal/grossly intact

84-year-old female past medical history of dementia, paroxysmal atrial fibrillation status post pulmonary vein isolation, hypertension, hyperlipidemia, hypothyroidism, microcytic anemia, chronic kidney disease migraines presented to the emergency
room for reported dizziness resulting in presyncopal episode. History is obtained from patient's who states that she was walking with assistance from her when she felt dizzy and he brought her down to the ground. She did not hit
her head or have any injury. She denied passing out.
She denied any headache, visual changes, focal weakness or numbness or tingling, chest pain or shortness of breath. Patient frequently gets dizzy when she stands up too quickly or turns her head. She sometimes feels like her heart is racing.
Patient was noted to seem slightly confused by ER. She lives in independent care with her .
# Pre-Syncopal episode unclear etiology
#Acute or subacute confusional state on presentation - RESOLVED
-Orthostatics vital signs negative
-IV fluids given
-Stop Amlodipine and Diltiazem as per cardiology
-Hold isosorbide dinitrate, but restart Imdur 30 mg QD. (Switch from Isordil to Imdur)
-Continue spironolactone
-Telemetry monitoring
-Check daily orthostatics
-Consulted cardiology, patient sees [facility] cardiology outpatient, appreciate evaluation and recommendations
-PT/OT
Paroxysmal atrial fibrillation status post pulmonary vein isolation
-Continue diltiazem
-Continue Eliquis
-Continue metoprolol 25mg QD
Concern for CKD Stage 3a/3b
-Monitor BMP outpatient
Essential hypertension
-Hold amlodipine since taking diltiazem
-Continue spironolactone
Hyperlipidemia
-Continue statin
Hypothyroidism
-Continue levothyroxine
Chronic kidney disease
-Renal function at baseline
Microcytic anemia
-Stable
History of migraines
Dementia
-Continue donepezil, memantine
Anxiety/depression
-Continue fluoxetine
Osteoporosis
-Continue raloxifene
Full code
DVT prophylaxis�Eliquis
Regular diet
More than 30 minutes spent in discharge including
Final examination of the patient
Summarizing hospital stay
Instructions for continuing care to all relevant caregivers
Preparation of discharge records, prescriptions, and referral forms
Total time spent (in minutes): 35
Anticipated Discharge: Today
Subjective/Interval History
-
Date of Service: June 29, 2024
Patient was seen and examined. She reported feeling fine, denied dizziness or any other symptoms/complaints.
Objective Data
-
Labs:
Laboratory Results
06/29/24
06:09
WBC 4.6 L
Hgb 9.3 L
Hct 27.8 L
Plt Count 161
Sodium 141
Potassium 3.9
Chloride 109 H
Carbon Dioxide 21 L
BUN 17
Creatinine 1.0
Glucose 89
Calcium 9.2
Vital Signs:
Vital Signs
Temp Pulse Resp BP Pulse Ox
98.4 F 61 18 113/50 99
06/29/24 11:32 06/29/24 11:32 06/29/24 11:32 06/29/24 11:32 06/29/24 11:32
I&O
06/28/24 06/29/24 06/30/24
06:59 06:59 06:59
Intake Total 240 / 240 480 / 480
Output Total 300 / 300
Balance -60 / -60 480 / 480
[2024-06-29 15:16] VITALS: BP 100/50; BP 126/61; BP 129/62; PULSE 62; PULSE 65; PULSE 71
[2024-06-29 15:17] VITALS: BP 129/62
== END 2024-06-29 16:46 | disposition home or self-care (01) ==
LOC: 3 WEST ACU 16:17
PROVIDERS: Emergency Medicine; ADMITTING PHYSICIAN Hospitalist; ATTENDING PHYSICIAN Hospitalist; CONSULT PHYSICIAN Internal Medicine Cardiovascular Disease; EMERGENCY PHYSICIAN Emergency Medicine; FAMILY PHYSICIAN Family Medicine
DX: R42 Dizziness and giddiness (principal); R55 Syncope and collapse; I48.0 Paroxysmal atrial fibrillation; I12.9 Hypertensive chronic kidney disease with stage 1 through stage 4 chronic kidney disease, or unspecified chronic kidney disease; R41.0 Disorientation, unspecified; E78.00 Pure hypercholesterolemia, unspecified; G43.909 Migraine, unspecified, not intractable, without status migrainosus; R00.0 Tachycardia, unspecified; N18.32 Chronic kidney disease, stage 3b; D64.9 Anemia, unspecified; N17.9 Acute kidney failure, unspecified; F02.A4 Dementia in other diseases classified elsewhere, mild, with anxiety; N18.9 Chronic kidney disease, unspecified; D63.1 Anemia in chronic kidney disease; D50.9 Iron deficiency anemia, unspecified; I73.89 Other specified peripheral vascular diseases; E03.9 Hypothyroidism, unspecified; M81.0 Age-related osteoporosis without current pathological fracture; F32.A Depression, unspecified; F02.A3 Dementia in other diseases classified elsewhere, mild, with mood disturbance; G30.9 Alzheimer's disease, unspecified; R00.1 Bradycardia, unspecified; G47.33 Obstructive sleep apnea (adult) (pediatric); R26.2 Difficulty in walking, not elsewhere classified; E78.5 Hyperlipidemia, unspecified; Z82.49 Family history of ischemic heart disease and other diseases of the circulatory system; Z83.6 Family history of other diseases of the respiratory system; Z79.890 Hormone replacement therapy; Z79.01 Long term (current) use of anticoagulants; Z86.73 Personal history of transient ischemic attack (TIA), and cerebral infarction without residual deficits
CPT/HCPCS: 70450; 80048; 80053; 82962; 83735; 84443; 85025; 85027; 93005; 96360; 97162; 97165; 99285; G0378

== ENCOUNTER 2024-08-28 13:51 | Emergency (ER) | payer MEDICARE, OTHER, SELFPAY ==
[2024-08-28 13:53] VITALS: BP 126/72
--- NOTE | 2024-08-28 14:41 | ED.GENMED ---
History of Present Illness
<Natalie Jones PA-C - Last Filed: 08/28/24 20:41>
General
Chief Complaint: Fall
Source: patient and family
Time Seen by Provider: 08/28/24 14:10
History of Present Illness
History of Present Illness:
84yoF with a history of atrial fibrillation on Eliquis, hypertension, hyperlipidemia, and dementia presenting with her daughter for evaluation after a fall. Fall occurred 3 days ago. Patient was in her bathroom and was getting undressed. She was
in a hurry to use the toilet and fell. She denies any preceding dizziness. She fell on her right side. She is unsure if she hit her head but denies any loss of consciousness. Patient has been having ongoing right hip pain since then. She was
able to ambulate after the fall but has been 'hobbling around' since then. Her pain started to worsen today. She also reports pain in her lower back and right shoulder. Patient currently lives with her daughter. She has a walker but does not use
this frequently.
Past History
<Natalie Jones PA-C - Last Filed: 08/28/24 20:41>
Past History
ED Past Medical History: Arrthythmia, HTN, Hypercholesterolemia, Psychiatric and Other
ED Past Surgical History: Gynecological and Orthopedic
Social History
Tobacco: Non-smoker
Alcohol: None
Drug: None
Personal:
Living: with family
Employment: Retired
Family History
Family History: Hypertension and Other (CAD, COPD)
Phy Exam
<Natalie Jones PA-C - Last Filed: 08/28/24 20:41>
General Physical Exam
General Presentation: well appearing and no apparent distress
General age: appears stated age
General Skin: warm and dry
General Habitus: normal
General Mental: alert
ENT Exam
ENT Exam: normocephalic and other (No external signs of head trauma. No C spine tenderness.)
Eye Exam
Eye Exam: PERRL
Pulmonary Exam
Pulmonary Exam: lungs clear, no respiratory distress, no rales, no crackles and no rhonchi
Gastrointestinal Exam
Gastrointestinal Exam: non tender, soft and non distended
Neurological Exam
Neurological Exam: alert
[place] Coma Scale
Eye Opening: Spontaneous
Verbal Response: Oriented
Motor Response: Obeys Commands
GCS Total Score: 15
Musculoskeletal Exam
Musculoskeletal Exam: other (Ecchymosis noted to R posterior hip with tenderness. No deformity noted. ROM of R hip intact. +Lumbar spine tenderness without step-offs.)
Skin Exam
Skin Exam: warm/dry and other (Ecchymosis noted to R flank)
Psychiatric Exam
Psychiatric Exam: normal mood/affect
<Micki Pinto PA-C - Last Filed: 08/28/24 21:37>
[place] Coma Scale
GCS Total Score: 15
Course
<Natalie Jones PA-C - Last Filed: 08/28/24 20:41>
Orders/Labs/Results
Orders:
Orders
08/28/24 14:38
CT Cervical Spine W/o Iv Contr Urgent
Comment:
Reason For Exam: fall, neck pain
CR Femur - Right Min 2 Vw Urgent
Comment:
Reason For Exam: fall, hip pain
CR Pelvis - 1 Or 2 Views Urgent
Comment:
Reason For Exam: R hip pain
08/28/24 14:39
CT Abd/pelvis W Iv Cont Urgent
Comment:
Reason For Exam: Fall, back pain, R flank ecchymosis
CT Head W/o Iv Contrast Urgent
Comment:
Reason For Exam: fall, possible head strike
08/28/24 14:43
CR Shoulder, Trauma - Right Urgent
Reason For Exam: pain, fall
08/28/24 15:33
Complete Blood Count/With Diff Urgent
Comprehensive Metabolic Panel Urgent
08/28/24 15:47
Oxycodone/Acetaminophen [Percocet 5/325] 1 tablet PO NOW STA
08/28/24 16:14
0.9% Sodium Chloride 500 ml [Nss] 500 ml IV BOLUS
Abnormal Lab Results
08/28/24
15:33
RBC 3.99 L 10^6/uL
(4.20-5.40)
Hgb 10.2 L g/dL
(12.0-16.0)
Hct 32.5 L %
(37.0-47.0)
MCH 25.6 L pg
(27.0-31.0)
MCHC 31.4 L g/dL
(33.0-37.0)
RDW 17.0 H %
(11.5-14.5)
Monocytes % 11.8 H %
(1.7-9.3)
BUN 20 H mg/dl
(7-17)
Creatinine 1.4 H mg/dL
(0.6-1.0)
AST 37 H U/L
(14-36)
08/28/24 15:33
08/28/24 15:33
Vital Signs
Initial and Last Documented VS:
Initial Vital Signs
Temp Pulse Resp BP Pulse Ox
98.8 F 86 18 126/72 98
08/28/24 13:53 08/28/24 13:53 08/28/24 13:53 08/28/24 13:53 08/28/24 13:53
Last Documented Vital Signs
Temp Pulse Resp BP Pulse Ox
98.8 F 89 18 133/67 97
08/28/24 13:53 08/28/24 19:47 08/28/24 19:47 08/28/24 19:47 08/28/24 19:47
<Micki Pinto PA-C - Last Filed: 08/28/24 21:37>
Orders/Labs/Results
Orders:
Orders
08/28/24 14:38
CT Cervical Spine W/o Iv Contr Urgent
Comment:
Reason For Exam: fall, neck pain
CR Femur - Right Min 2 Vw Urgent
Comment:
Reason For Exam: fall, hip pain
CR Pelvis - 1 Or 2 Views Urgent
Comment:
Reason For Exam: R hip pain
08/28/24 14:39
CT Abd/pelvis W Iv Cont Urgent
Comment:
Reason For Exam: Fall, back pain, R flank ecchymosis
CT Head W/o Iv Contrast Urgent
Comment:
Reason For Exam: fall, possible head strike
08/28/24 14:43
CR Shoulder, Trauma - Right Urgent
Reason For Exam: pain, fall
08/28/24 15:33
Complete Blood Count/With Diff Urgent
Comprehensive Metabolic Panel Urgent
08/28/24 15:47
Oxycodone/Acetaminophen [Percocet 5/325] 1 tablet PO NOW STA
08/28/24 16:14
0.9% Sodium Chloride 500 ml [Nss] 500 ml IV BOLUS
Abnormal Lab Results
08/28/24
15:33
RBC 3.99 L 10^6/uL
(4.20-5.40)
Hgb 10.2 L g/dL
(12.0-16.0)
Hct 32.5 L %
(37.0-47.0)
MCH 25.6 L pg
(27.0-31.0)
MCHC 31.4 L g/dL
(33.0-37.0)
RDW 17.0 H %
(11.5-14.5)
Monocytes % 11.8 H %
(1.7-9.3)
BUN 20 H mg/dl
(7-17)
Creatinine 1.4 H mg/dL
(0.6-1.0)
AST 37 H U/L
(14-36)
08/28/24 15:33
08/28/24 15:33
Vital Signs
Initial and Last Documented VS:
Initial Vital Signs
Temp Pulse Resp BP Pulse Ox
98.8 F 86 18 126/72 98
08/28/24 13:53 08/28/24 13:53 08/28/24 13:53 08/28/24 13:53 08/28/24 13:53
Last Documented Vital Signs
Temp Pulse Resp BP Pulse Ox
98.8 F 89 18 133/67 97
08/28/24 13:53 08/28/24 19:47 08/28/24 19:47 08/28/24 19:47 08/28/24 19:47
<Natalie Jones PA-C - Last Filed: 08/28/24 20:41>
MDM/Problems Addressed
Differential Diagnosis Includes:
84yoF here after a fall 3 days ago. C/o R hip pain that is worse today. Also having lower back pain and R shoulder pain. Unknown head strike. Currently on Eliquis. VSS. She is awake, alert, with a GCS of 15. R flank ecchymosis and R posterior hip
ecchymosis noted on exam. Differential diagnosis includes but is not limited to: fracture, contusion, sprain, intra-abdominal injury
Initial ED plan: Check CBC, CMP, R shoulder x-rays, pelvic/R femur x-rays, CT head, CT cervical spine, and CT abdomen. Percocet for pain.
<Natalie Jones PA-C - Last Filed: 08/28/24 20:41>
*Critical Care Note
Total Time (30-74mins, 75-104mins- exclusive of procedures): Not Applicable
<Natalie Jones PA-C - Last Filed: 08/28/24 20:41>
Update Note
Update Note:
Creatinine 1.4, mildly increased from baseline of 1.0-1.1. IV fluid bolus ordered. X-rays of R shoulder and R hip negative for fractures. Patient signed out to Micki Pinto PA-C prior to CT results. Final diagnosis and disposition pending.
<Micki Pinto PA-C - Last Filed: 08/28/24 21:37>
Update Note
Update Note:
Creatinine 1.4, mildly increased from baseline of 1.0-1.1. IV fluid bolus ordered. X-rays of R shoulder and R hip negative for fractures. Patient signed out to Micki Pinto PA-C prior to CT results. Final diagnosis and disposition pending.
Micki Pinto PA-C: Update, CT scan of the abdomen demonstrates minimally displaced right L2 transverse process fracture. Discussed findings with patient on how this is usually managed conservatively however did give follow-up referral for
orthopedics. Discussed pain management. Pelvis femur and shoulder x-ray did not show any acute findings or bony abnormalities. CT of the head and neck showed no concerning acute findings. Patient stable for discharge.
ED Attending Note
<Natalie Jones PA-C - Last Filed: 08/28/24 20:41>
-
Portions of this chart may have been created with voice recognition software.� Occasional wrong word or��sound alike� substitutions may have occurred due to the inherent limitations of voice recognition software.
Discharge Plan
Departure
Patient Disposition: Home (Routine Discharge)
Date of Disposition: 08/28/24
Time of Disposition: 19:25
Patient with high blood pressure during this ER visit?: Yes
Discharge Problem:
Fall on same level, Contusion of right flank, Fracture of transverse process of lumbar vertebra
Instructions: Contusion (DC), Preventing falls in adults
Prescriptions:
No Action
atorvastatin 40 MG tablet
40 mg PO HS
raloxifene 60 MG tablet
60 mg PO DAILY
docosahexaenoic acid-epa 1 CAP capsule
1 cap PO HS
levothyroxine 75 MCG tablet
75 mcg PO DAILY
calcium carbonate 600 MG tablet
600 mg PO DAILY
vitamin E (dl, acetate) 100 UNITS capsule
100 units PO HS
Centrum 1 EACH tablet
1 ea PO DAILY
PreserVision AREDS 1 CAP capsule
1 cap PO DAILY
cholecalciferol (vitamin D3) 2,000 UNITS tablet
2,000 units PO HS
pantoprazole 40 MG tablet,delayed release (DR/EC)
40 mg PO DAILY
Eliquis 5 MG tablet
5 mg PO BID
metoprolol succinate 25 MG tablet extended release 24 hr
25 mg PO DAILY Qty: 30 0RF
spironolactone 25 MG tablet
25 mg PO DAILY
fluoxetine 40 mg Capsule
40 mg PO DAILY
donepezil 10 mg Tablet
10 mg PO HS
memantine 10 mg Tablet
10 mg PO BID
isosorbide mononitrate 30 mg Tablet Extended Release 24 Hr
30 mg PO DAILY Qty: 30 1RF
Referrals:
Darren Mahmood MD [Active] -
Ian Humphreys MD [Active] - Call in 1-3 days for appt
Martin Larios MD [Family Provider] -
Activity Restrictions/Additional Instructions:
Apply ice to affected area. Take Tylenol 650mg every 6 hours as needed for pain.
Your abdominal CT scan showed a transverse process fracture of right L2 vertebrae. It is minimally displaced. No indication for bracing at this time.
Please follow-up with your family doctor and follow-up with orthopedics if your hip pain persists. Return to the ER with any new or worsening symptoms.
Interventions
Interventions:
*Risk Screen - Suicide Last Done: 08/28/24 13:53
*General Assessment Last Done: 08/28/24 13:53
*Neglect/Abuse Screening Last Done: 08/28/24 13:53
ED- Fall Risk Assessment Last Done: 08/28/24 14:00
*Nursing Disposition Last Done: 08/28/24 19:49
ED-Musculoskeletal Assessment Last Done: 08/28/24 14:00
ED- Neurological Assessment Last Done: 08/28/24 14:00
ED-Skin Assessment Last Done: 08/28/24 14:00
Discharge Date and Time
Discharge Date/Time: 08/28/24 19:49
Print Language: SLOVENIAN
[2024-08-28 15:58] VITALS: BMI 21.9
[2024-08-28 15:59] LABS: % Basophils 0.8 % (0-2); % Eosinophils 1.4 % (0-6); % Immature Granulocytes 0.2 % (0-0.5); % Lymphocytes 23.4 % (20.5-51.1); % Monocytes 11.8 % (1.7-9.3); % Neutrophils 62.4 % (42.2-75.2); Absolute Eosinophils 0.1 10^3/uL (0-0.7); Absolute Lymphocytes 1.2 10^3/uL (1.2-3.4); Absolute Monocytes 0.6 10^3/uL (0.1-0.6); Absolute Neutrophils 3.1 10^3/uL (1.4-6.5); Hematocrit 32.5 % (37.0-47.0); Hemoglobin 10.2 g/dL (12.0-16.0); Mean Corp Hgb Conc. 31.4 g/dL (33.0-37.0); Mean Corpuscular Hgb 25.6 pg (27.0-31.0); Mean Corpuscular Volume 81.5 fL (81.0-99.0); Mean Platelet Volume 10.3 fL (7.4-10.4); Nucleated Red Blood Cells % 0 %; Platelet Count 169 10^3/uL (130-400); Red Blood Cell Count 3.99 10^6/uL (4.20-5.40); White Blood Cell Count 4.9 10^3/uL (4.8-10.8)
[2024-08-28] MEDS: PERCOCET 5/325 1 TABLET PO (16:02)
[2024-08-28 16:06] VITALS: BP 151/65
[2024-08-28 16:13] LABS: ALT (SGPT) 28 U/L (0-35); AST (SGOT) 37 U/L (14-36); Albumin 3.9 g/dl (3.5-5.0); Alkaline Phosphatase 62 U/L (38-126); Blood Urea Nitrogen 20 mg/dl (7-17); Calcium 9.1 mg/dl (8.4-10.2); Carbon Dioxide 25 mmol/L (22-30); Chloride 107 mmol/L (98-107); Estimated Creatinine Clearance 23 ml/min; Glucose 94 mg/dl (70-99); Potassium 4.7 mmol/L (3.5-5.1); Sodium 141 mmol/L (135-145); Total Bilirubin 0.4 mg/dl (0.2-1.3); Total Protein 6.5 g/dl (6.3-8.2); eGFR 36.87
[2024-08-28] MEDS: NSS 500 IV (16:23)
[2024-08-28 19:47] VITALS: BP 133/67
== END 2024-08-28 19:49 | disposition home or self-care (01) ==
LOC: EMR 13:51
PROVIDERS: Physician Assistant; EMERGENCY PHYSICIAN Emergency Medicine; FAMILY PHYSICIAN Family Medicine
DX: S32.028A Other fracture of second lumbar vertebra, initial encounter for closed fracture (principal); S30.1XXA Contusion of abdominal wall, initial encounter; W18.30XA Fall on same level, unspecified, initial encounter; I10 Essential (primary) hypertension; I48.91 Unspecified atrial fibrillation; F03.90 Unspecified dementia, unspecified severity, without behavioral disturbance, psychotic disturbance, mood disturbance, and anxiety; E78.00 Pure hypercholesterolemia, unspecified; Z79.01 Long term (current) use of anticoagulants
CPT/HCPCS: 99284; 96360; 70450; 72125; 72170; 73030; 73552; 74177; 80053; 85025; Q9967